=== PATIENT | male | born 1995 | race Caucasian/White ===

== ENCOUNTER 2020-02-17 16:22 | Outpatient (CLI) | payer OTHER | END 2020-02-17 16:23 | disposition EMS.NT | LOC: EMS 16:22 | PROVIDERS: ATTEND Surgery | DX: S61.411A Laceration without foreign body of right hand, initial encounter (principal); R51 Headache; V43.92XA Unspecified car occupant injured in collision with other type car in traffic accident, initial encounter; Y92.413 State road as the place of occurrence of the external cause ==

== ENCOUNTER 2020-02-17 17:26 | Emergency (ER) | payer SELFPAY ==
[2020-02-17] MEDS ORDERED: BUFFERED LIDOCAINE 10 ML SYRINGE SUBQ STA (17:39)
[2020-02-17 17:40] VITALS: BP 130/64
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
--- NOTE | 2020-02-17 18:01 | XRAY Report ---
PROCEDURE: Hand 3 View LT INDICATIONS: hand inj TECHNIQUE: 3 views of the hand(s) acquired. COMPARISON: None FINDINGS: Bones: No fractures or dislocations. No suspicious bony lesions. Soft tissues: No suspicious soft tissue calcifications. IMPRESSION: No fracture. No osseous lesion. If there is continued clinical concern for pathology, then repeat abilio in film radiographs (7-10 days) or advanced imaging (CT, MR, bone scan) should be considered for furt her evaluation. Reviewed by: Vikki Arnold MD, PhD on 02/17/2020 6:00 PM PDT Approved by: Vikki Arnold MD, PhD on 02/17/2020 6:00 PM PDT Station ID: [id number]
== END 2020-02-17 18:00 | disposition home or self-care (01) ==
LOC: ED 17:26
DX: S61.412A Laceration without foreign body of left hand, initial encounter (principal); S60.222A Contusion of left hand, initial encounter; V43.02XA Car driver injured in collision with other type car in nontraffic accident, initial encounter; Y92.410 Unspecified street and highway as the place of occurrence of the external cause
CPT/HCPCS: 12001; 99282; 99283

== ENCOUNTER 2020-09-27 18:57 | Emergency (ER) | payer OTHER ==
[2020-09-27 19:10] VITALS: BP 149/96
--- NOTE | 2020-09-27 19:17 | ED Physician Documentation ---
History of Present Illness - Stated complaint Stated Complaint: C+ SYMPTOMS - Chief complaint Chief Complaint: General - History obtained from History obtained from: Patient - History of Present Illness Timing: How many days ago (2) Pain level max: 0 Pain level now: 0 - Additonal information Additional information: 24-year-old male with a fever and body aches for the past 2 days. Dry cough today. He decided to go to work in spite of his symptoms, was sent home by his command. He came here for a Covid test. He took Tylenol and Motrin and feels better. No rhinorrhea or congestion. There are other people with Covid in his command. Review of Systems Ten Systems: 10 systems reviewed and negative Constitutional: reports: Fever, Chills, Myalgias Nose: denies: Rhinorrhea / runny nose, Congestion Throat: denies: Sore throat Cardiac: denies: Chest pain / pressure Respiratory: denies: Dyspnea, Wheezing GI: denies: Abdominal Pain, Nausea, Vomiting, Diarrhea Skin: denies: Rash Musculoskeletal: denies: Neck pain, Back pain Neurologic: denies: Headache PD PAST MEDICAL HISTORY - Past Medical History Past Medical History: No - Past Surgical History Past Surgical History: No - Present Medications Home Medications: Ambulatory Orders Medication Instructions Recorded Confirmed No Known Home Medications 09/27/20 09/27/20 - Allergies Allergies/Adverse Reactions: Allergies Allergy/AdvReac Type Severity Reaction Status Date / Time No Known Drug Allergies Allergy Verified 09/27/20 19:10 - Living Situation Living Arrangement: reports: At home - Social History Does the pt smoke?: No Does the pt have substance abuse?: No - Family History Family history: reports: Non contributory PD ED PE NORMAL - Vitals Vital signs reviewed: Yes - General General: Alert and oriented X 3, No acute distress - HEENT HEENT: PERRL, Ears normal, Moist mucous membranes, Pharynx benign - Neck Neck: Supple, no meningeal sign - Cardiac Cardiac: RRR, Strong equal pulses - Respiratory Respiratory: No respiratory distress, Clear bilaterally - Abdomen Abdomen: Soft, Non tender, Non distended - Derm Derm: Warm and dry - Extremities Extremities: No edema - Neuro Neuro: Alert and oriented X 3 - Psych Psych: Normal mood, Normal affect Results - Vitals Vitals: Vital Signs - 24 hr 09/27/20 19:06 Temperature 36.8 C Heart Rate 72 Respiratory 16 Rate Blood Pressure 149/96 H O2 Saturation 100 Oxygen O2 Source Room air PD MEDICAL DECISION MAKING - ED course Complexity details: considered differential, d/w patient ED course: 24-year-old male with viral URI symptoms. Possible Covid. Swabbed for Covid. Otherwise very well-appearing, nontoxic. Afebrile. No hypoxia. No respiratory distress. We will have him follow-up with his doctor for further care. Patient counseled regarding signs and symptoms for which I believe and urgent re- evaluation would be necessary. Patient with good understanding of and agreement to plan and is comfortable going home at this time This document was made in part using voice recognition software. While efforts are made to proofread this document, sound alike and grammatical errors may occur. Departure - Departure Disposition: 01 Home, Self Care Clinical Impression: Viral URI with cough Condition: Good Instructions: ED Viral Syndrome Follow-Up: KIERSTEN CRANE MD [Primary Care Provider] - As Needed Comments: You have a Covid test pending. You need to self quarantine until the result is done and negative. Do not leave your house. Do not get near anybody. The results should be done in 48 to 72 hours. We will call with a positive result, the fastest way to get a negative result for confirmation though is to go to the hospital website at [email or web address], click on the my [facility] tab and sign up for the patient portal. If any friends or family get sick and would like to have a Covid test done, but do not have signs or symptoms that would necessitate being hospitalized, we encourage testing through our coronavirus swabbing station, call [phone] to schedule an appointment.
== END 2020-09-27 19:26 | disposition home or self-care (01) ==
LOC: ED 18:57
DX: U07.1 COVID-19 (principal)
CPT/HCPCS: 99283; 99284

== ENCOUNTER 2022-08-04 19:40 | Outpatient (CLI) | payer OTHER | END 2022-08-04 19:41 | disposition home or self-care (01) | LOC: SC 19:40 | PROVIDERS: ATTEND Internal Medicine Pulmonary Disease | DX: R06.83 Snoring (principal); G47.8 Other sleep disorders; G47.10 Hypersomnia, unspecified | CPT/HCPCS: 95810 ==

== ENCOUNTER 2022-09-12 11:00 | Outpatient (CLI) | payer OTHER ==
[2022-09-12 15:16] VITALS: BP 116/68
--- NOTE | 2022-09-12 15:16 | SLEEP CARE CONSULTATION ---
Information from patient questionnaire entered by Paul Carrillo. I have reviewed and concur with the information entered by Paul Carrillo. This document represents the service I personally performed and the decisions made by me, Ange Ladd MD, [facility]. History of Present Illness Service Date and Time: 09/12/2022 1100 Initial Malone Sleepiness Scale score: 10 (06/13/2022) Current Malone Sleepiness Scale score: 9 (09/12/22) Additional HPI information: Mr. Simeon returned for follow up of the sleep study he had on 08-04-22. The polysomnography showed that the patient had reduced sleep efficiency due to a prolonged awakening in the middle of the night. The sleep architecture was otherwise normal. Respiratory monitoring showed no significant sleep disordered breathing (AHI = 1.4) or hypoxia (yulissa oxygen saturation of 90%). The patient slept adequately in supine position (supine AHI = 1.7; non-supine = 0.86). Snore was infrequent and light in intensity. There was no significant periodic leg movement of sleep. Cardiac rhythm was normal sinus rhythm without significant arrhythmia. No abnormal behavior (parasomnia) observed during the night. Sleep Study - Results Type of Sleep Study: Polysomnography (COMPLETED 08/04/2022) Prior sleep studies: No Allergies and Home Medications Drug allergies reviewed: Yes Home medication list reviewed: Yes Allergy and home medication list: Allergies No Known Drug Allergies Allergy (Verified 06/13/22 13:33) Review of Systems Review of systems same as previous: Yes Physical Exam Vital signs obtained and entered by: PAUL Cortez MA Blood Pressure: 116/68 (LEFT ARM) Cuff size: regular Heart Rate: 87 O2 Saturation: 98 Height: 5 ft 8 in Weight: 191 lb 12.8 oz Body Mass Index: 29.1 BMI Classification: Overweight Impression and Plan IMPRESSION: 1. Primary Snore (ICD-10 R06.83), light only and no sleep-related breathing disorder. The patients original concern was choking at night which we did not see. No treatment is necessary. PLAN: 1. Follow up with his primary care provider. 2. Return to the sleep clinic on as needed basis. Follow up with Sleep Care in: as needed Follow up with: PCP Visit Type: In Office Time Spent with Patient (minutes): 15 Provider Statement: I spent 100% of the Face to Face Visit with the patient with greater than 50% spent counseling the patient and coordination of care.
== END 2022-09-12 11:01 | disposition home or self-care (01) ==
LOC: SC 11:00
PROVIDERS: ATTEND Internal Medicine Pulmonary Disease
DX: R06.83 Snoring (principal)
CPT/HCPCS: 99212